=== PATIENT | female | born 1945 | race American Indian/Alaskan Native ===

== ENCOUNTER 2018-12-16 11:34 | Emergency (ER) | payer MEDICARE ==
--- NOTE | 2018-12-16 11:54 | Emergency Department Report ---
Blank Doc - Documentation Documentation: 73-year-old female that presents with uncontrolled diabetes and dizziness. Was sent by PCP. This initial assessment/diagnostic orders/clinical plan/treatment(s) is/are subject to change based on patient's health status, clinical progression and re- assessment by fellow clinical providers in the ED. Further treatment and workup at subsequent clinical providers discretion. Patient/guardians urged not to elope from the ED as their condition may be serious if not clinically assessed and managed. Initial orders include: 1- Patient sent to MAIN for further evaluation and treatment 2- labs 3- UA 4- EKG
[2018-12-16 12:43] LABS: Bacteria,Urine 1+ /HPF (Negative); Bilirubin,Urine NEG (Negative); Blood,Urine NEG (Negative); Color,Urine Straw (Yellow); Mucus,Urine FEW /HPF; Protein,Urine <15 mg/dL mg/dL (Negative); Urobilinogen,Urine < 2.0 mg/dL (<2.0)
[2018-12-16 13:25] LABS: Albumin 4.1 g/dL (3.9-5); Calcium 9.9 mg/dL (8.4-10.2)
[2018-12-16] MEDS ORDERED: SODIUM CHLORIDE 0.9% 1000 ML 1,000 ML IV ONE ×2 (13:53→14:00)
[2018-12-16 14:01] LABS: Hemoglobin 8.5 gm/dl (10.1-14.3); Mean Corpuscular HGB Conc 33 % (30-34); Mean Corpuscular Volume 71 fl (79-97); Red Blood Count 3.64 M/mm3 (3.65-5.03); Red Cell Distribution Width 17.8 % (13.2-15.2)
[2018-12-16 14:29] LABS: Platelet Count 330 K/mm3 (140-440)
[2018-12-16 14:30] LABS: Basophils # (Auto) 0.1 K/mm3 (0.0-0.1); Basophils % (Auto) 1.2 % (0.0-1.8); Eosinophils # (Auto) 0.1 K/mm3 (0.0-0.4); Eosinophils % (Auto) 0.6 % (0.0-4.3); Lymphocytes # (Auto) 1.6 K/mm3 (1.2-5.4); Lymphocytes % (Auto) 14.1 % (13.4-35.0); Monocytes # (Auto) 0.8 K/mm3 (0.0-0.8); Monocytes % (Auto) 7.1 % (0.0-7.3)
[2018-12-16] MEDS ORDERED: INSULIN REGULAR, HUMAN 100 UNITS/1 ML IV ONE ×2 (14:49→17:12)
--- NOTE | 2018-12-16 14:56 | Emergency Department Report ---
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 Patient was scheduled for an endoscopy but was canceled due to her elevated glucose levels and her feeling dizzy. Patient states her dizziness has resolved after getting something to eat. Patient is a diabetic and did not have a significant caloric intake yesterday due to preparation for endoscopy. Patient denies chest pain, suspect, or headache. Patient is diabetic and takes metformin for her glucose control -: Sudden Radiation: non-radiation Severity scale (0 -10): 0 Consistency: now resolved Improves with: eating Worsens with: none Associated Symptoms: denies other symptoms Treatments Prior to Arrival: none - Related Data Home Medications Medication Instructions Recorded Confirmed Last Taken Allopurinol [Zyloprim] 100 mg PO DAILY 12/16/18 12/16/18 Unknown Lisinopril/Hydrochlorothiazide 1 tab PO DAILY 12/16/18 12/16/18 Unknown [Zestoretic 10-12.5 mg Tablet] Metformin HCl 500 mg PO BID 12/16/18 12/16/18 2 Days Ago ~12/14/18 Omeprazole 40 mg PO QDAY 12/16/18 12/16/18 Unknown Allergies Allergy/AdvReac Type Severity Reaction Status Date / Time No Known Allergies Allergy Unverified 12/16/18 11:47 ED Review of Systems ROS: Stated complaint: LOW GLUCOSE/BP/HEART RATE Other details as noted in HPI Constitutional: denies: chills, fever Eyes: denies: eye pain, eye discharge, vision change ENT: denies: ear pain, throat pain Respiratory: denies: cough, shortness of breath, wheezing Cardiovascular: denies: chest pain, palpitations Endocrine: no symptoms reported Gastrointestinal: denies: abdominal pain, nausea, diarrhea Genitourinary: denies: urgency, dysuria, discharge Musculoskeletal: denies: back pain, joint swelling, arthralgia Skin: denies: rash, lesions Neurological: denies: headache, weakness, paresthesias Psychiatric: denies: anxiety, depression Hematological/Lymphatic: denies: easy bleeding, easy bruising ED Past Medical Hx - Past Medical History Previous Medical History?: Yes Hx Diabetes: Yes - Surgical History Past Surgical History?: Yes Additional Surgical History: Hiatal hernia - Social History Smoking Status: Never Smoker Substance Use Type: None - Medications Home Medications: Home Medications Medication Instructions Recorded Confirmed Last Taken Type Allopurinol [Zyloprim] 100 mg PO DAILY 12/16/18 12/16/18 Unknown History Lisinopril/Hydrochlorothiazide 1 tab PO DAILY 12/16/18 12/16/18 Unknown History [Zestoretic 10-12.5 mg Tablet] Metformin HCl 500 mg PO BID 12/16/18 12/16/18 2 Days Ago History ~12/14/18 Omeprazole 40 mg PO QDAY 12/16/18 12/16/18 Unknown History ED Physical Exam - General Limitations: No Limitations General appearance: alert, in no apparent distress - Head Head exam: Present: atraumatic, normocephalic - Eye Eye exam: Present: normal appearance, PERRL, EOMI - ENT ENT exam: Present: mucous membranes dry - Neck Neck exam: Present: normal inspection - Respiratory Respiratory exam: Present: normal lung sounds bilaterally. Absent: respiratory distress - Cardiovascular Cardiovascular Exam: Present: normal rhythm, tachycardia. Absent: systolic murmur, diastolic murmur, rubs, gallop - GI/Abdominal GI/Abdominal exam: Present: soft, normal bowel sounds. Absent: distended, tenderness - Extremities Exam Extremities exam: Present: normal inspection - Back Exam Back exam: Present: normal inspection - Neurological Exam Neurological exam: Present: alert, oriented X3, CN II-XII intact. Absent: motor sensory deficit - Psychiatric Psychiatric exam: Present: normal affect, normal mood - Skin Skin exam: Present: warm, dry, intact, normal color. Absent: rash ED Course Vital Signs 12/16/18 12/16/18 12/16/18 11:49 13:07 15:00 Temperature 97.7 F 97.2 F L Pulse Rate 98 H 86 86 Respiratory 18 16 18 Rate Blood Pressure 117/56 Blood Pressure 119/53 109/62 [Right] O2 Sat by Pulse 100 100 100 Oximetry 12/16/18 17:13 Temperature 98.2 F Pulse Rate 88 Respiratory 14 Rate Blood Pressure Blood Pressure 123/48 [Right] O2 Sat by Pulse 100 Oximetry ED Medical Decision Making - Lab Data Result diagrams: 12/16/18 13:38 12/16/18 12:53 Lab Results 12/16/18 12/16/18 12/16/18 Range/Units 11:51 12:53 12:53 WBC (4.5-11.0) K/mm3 RBC (3.65-5.03) M/mm3 Hgb (10.1-14.3) gm/dl Hct (30.3-42.9) % MCV (79-97) fl MCH (28-32) pg MCHC (30-34) % RDW (13.2-15.2) % Plt Count (140-440) K/mm3 Lymph % (Auto) (13.4-35.0) % [place] % (Auto) (0.0-7.3) % Eos % (Auto) (0.0-4.3) % Baso % (Auto) (0.0-1.8) % Lymph # (1.2-5.4) K/mm3 [place] # (0.0-0.8) K/mm3 Eos # (0.0-0.4) K/mm3 Baso # (0.0-0.1) K/mm3 Add Manual Diff Seg Neutrophils % (40.0-70.0) % Seg Neutrophils # (1.8-7.7) K/mm3 VBG pH 7.483 H (7.320-7.420) Sodium 123 L (137-145) mmol/L Potassium 4.9 (3.6-5.0) mmol/L Chloride 83.0 L (98-107) mmol/L Carbon Dioxide 20 L (22-30) mmol/L Anion Gap 25 mmol/L BUN 32 H (7-17) mg/dL Creatinine 1.6 H (0.7-1.2) mg/dL Estimated GFR 38 ml/min BUN/Creatinine Ratio 20 % Glucose 700 H* (65-100) mg/dL POC Glucose > 500 H (70-105) Calcium 9.9 (8.4-10.2) mg/dL Total Bilirubin 0.40 (0.1-1.2) mg/dL AST 18 (5-40) units/L ALT 15 (7-56) units/L Alkaline Phosphatase 98 (35-129) units/L Total Protein 7.9 (6.3-8.2) g/dL Albumin 4.1 (3.9-5) g/dL Albumin/Globulin Ratio 1.1 % Urine Color (Yellow) Urine Turbidity (Clear) Urine pH (5.0-7.0) Ur Specific Anderson (1.003-1.030) Urine Protein (Negative) mg/dL Urine Glucose (UA) (Negative) mg/dL Urine Ketones (Negative) mg/dL Urine Blood (Negative) Urine Nitrite (Negative) Urine Bilirubin (Negative) Urine Urobilinogen (<2.0) mg/dL Ur Leukocyte Esterase (Negative) Urine WBC (Auto) (0.0-6.0) /HPF Urine RBC (Auto) (0.0-6.0) /HPF U Epithel Cells (Auto) (0-13.0) /HPF Urine Bacteria (Auto) (Negative) /HPF Urine Mucus /HPF 12/16/18 12/16/18 12/16/18 Range/Units 13:38 15:47 17:18 WBC 11.2 H (4.5-11.0) K/mm3 RBC 3.64 L (3.65-5.03) M/mm3 Hgb 8.5 L (10.1-14.3) gm/dl Hct 26.0 L (30.3-42.9) % MCV 71 L (79-97) fl MCH 23 L (28-32) pg MCHC 33 (30-34) % RDW 17.8 H (13.2-15.2) % Plt Count 330 (140-440) K/mm3 Lymph % (Auto) 14.1 (13.4-35.0) % [place] % (Auto) 7.1 (0.0-7.3) % Eos % (Auto) 0.6 (0.0-4.3) % Baso % (Auto) 1.2 (0.0-1.8) % Lymph # 1.6 (1.2-5.4) K/mm3 [place] # 0.8 (0.0-0.8) K/mm3 Eos # 0.1 (0.0-0.4) K/mm3 Baso # 0.1 (0.0-0.1) K/mm3 Add Manual Diff Complete Seg Neutrophils % 77.0 H (40.0-70.0) % Seg Neutrophils # 8.6 H (1.8-7.7) K/mm3 VBG pH (7.320-7.420) Sodium (137-145) mmol/L Potassium (3.6-5.0) mmol/L Chloride (98-107) mmol/L Carbon Dioxide (22-30) mmol/L Anion Gap mmol/L BUN (7-17) mg/dL Creatinine (0.7-1.2) mg/dL Estimated GFR ml/min BUN/Creatinine Ratio % Glucose (65-100) mg/dL POC Glucose > 500 H 476 H (70-105) Calcium (8.4-10.2) mg/dL Total Bilirubin (0.1-1.2) mg/dL AST (5-40) units/L ALT (7-56) units/L Alkaline Phosphatase (35-129) units/L Total Protein (6.3-8.2) g/dL Albumin (3.9-5) g/dL Albumin/Globulin Ratio % Urine Color (Yellow) Urine Turbidity (Clear) Urine pH (5.0-7.0) Ur Specific Anderson (1.003-1.030) Urine Protein (Negative) mg/dL Urine Glucose (UA) (Negative) mg/dL Urine Ketones (Negative) mg/dL Urine Blood (Negative) Urine Nitrite (Negative) Urine Bilirubin (Negative) Urine Urobilinogen (<2.0) mg/dL Ur Leukocyte Esterase (Negative) Urine WBC (Auto) (0.0-6.0) /HPF Urine RBC (Auto) (0.0-6.0) /HPF U Epithel Cells (Auto) (0-13.0) /HPF Urine Bacteria (Auto) (Negative) /HPF Urine Mucus /HPF 12/16/18 12/16/18 Range/Units 18:12 Unknown WBC (4.5-11.0) K/mm3 RBC (3.65-5.03) M/mm3 Hgb (10.1-14.3) gm/dl Hct (30.3-42.9) % MCV (79-97) fl MCH (28-32) pg MCHC (30-34) % RDW (13.2-15.2) % Plt Count (140-440) K/mm3 Lymph % (Auto) (13.4-35.0) % [place] % (Auto) (0.0-7.3) % Eos % (Auto) (0.0-4.3) % Baso % (Auto) (0.0-1.8) % Lymph # (1.2-5.4) K/mm3 [place] # (0.0-0.8) K/mm3 Eos # (0.0-0.4) K/mm3 Baso # (0.0-0.1) K/mm3 Add Manual Diff Seg Neutrophils % (40.0-70.0) % Seg Neutrophils # (1.8-7.7) K/mm3 VBG pH (7.320-7.420) Sodium (137-145) mmol/L Potassium (3.6-5.0) mmol/L Chloride (98-107) mmol/L Carbon Dioxide (22-30) mmol/L Anion Gap mmol/L BUN (7-17) mg/dL Creatinine (0.7-1.2) mg/dL Estimated GFR ml/min BUN/Creatinine Ratio % Glucose (65-100) mg/dL POC Glucose 346 H (70-105) Calcium (8.4-10.2) mg/dL Total Bilirubin (0.1-1.2) mg/dL AST (5-40) units/L ALT (7-56) units/L Alkaline Phosphatase (35-129) units/L Total Protein (6.3-8.2) g/dL Albumin (3.9-5) g/dL Albumin/Globulin Ratio % Urine Color Straw (Yellow) Urine Turbidity Clear (Clear) Urine pH 6.0 (5.0-7.0) Ur Specific [place] 1.023 (1.003-1.030) Urine Protein <15 mg/dl (Negative) mg/dL Urine Glucose (UA) >=500 (Negative) mg/dL Urine Ketones 20 (Negative) mg/dL Urine Blood Neg (Negative) Urine Nitrite Neg (Negative) Urine Bilirubin Neg (Negative) Urine Urobilinogen < 2.0 (<2.0) mg/dL Ur Leukocyte Esterase Tr (Negative) Urine WBC (Auto) 1.0 (0.0-6.0) /HPF Urine RBC (Auto) 1.0 (0.0-6.0) /HPF U Epithel Cells (Auto) 8.0 (0-13.0) /HPF Urine Bacteria (Auto) 1+ (Negative) /HPF Urine Mucus Few /HPF - Medical Decision Making Patient received 2 liters of fluid with 10 units of IV insulin with a repeat dose of 5 units IV Critical Care Time: Yes Critical care time in (mins) excluding proc time.: 45 Critical care attestation.: If time is entered above; I have spent that time in minutes in the direct care of this critically ill patient, excluding procedure time. ED Disposition Clinical Impression: Hyperglycemia Disposition: DC- TO HOME OR SELFCARE Is pt being admited?: No Does the pt Need Aspirin: No Condition: Stable Instructions: Diabetic Hyperglycemia (ED) Additional Instructions: return if worse Referrals: PRIMARY CARE,MD [Primary Care Provider] - 3-5 Days [facility] [Provider Group] - 3-5 Days [facility] [Provider Group] - 3-5 Days Time of Disposition: 18:11
[2018-12-16 18:31] VITALS: BP 108/51
== END 2018-12-16 18:31 | disposition home or self-care (01) ==
LOC: ED 13:41
DX: E11.65 Type 2 diabetes mellitus with hyperglycemia (principal); Z79.84 Long term (current) use of oral hypoglycemic drugs; Z79.899 Other long term (current) drug therapy
CPT/HCPCS: 36415; 80053; 81001; 82805; 82962; 85025; 93005; 93010; 96361; 96374; 96375; 99284; J7030; J1815

== ENCOUNTER 2018-12-24 13:33 | Inpatient (IN) | payer MEDICARE ==
--- NOTE | 2018-12-24 13:47 | Event Note ---
ED Screening Note Date of service: 12/24/18 Time: 13:45 ED Screening Note: This is a 73 y.o. F. that presents to the ER with anemia. Patient states he PCP called and told her to follow up in ER because her blood is low and need a transfusion. + dizziness - SOB, chest pain PMH of DM2, hemorrhoids, and vertigo Patient reports tarry stools last week. This initial assessment/diagnostic orders/clinical plan/treatment(s) is/are subject to change based on patients health status, clinical progression and re- assessment by fellow clinical providers in the ED. Further treatment and workup at subsequent clinical providers discretion. Patient/guardian urged not to elope from the ED as their condition may be serious if not clinically assessed and managed. Initial orders include: Labs
--- NOTE | 2018-12-24 14:01 | Emergency Department Report ---
ED General Adult HPI - General Chief complaint: GI Bleed Stated complaint: SENT BY FOR BLOOD TRANSFUSION Time Seen by Provider: 12/24/18 13:44 Source: patient Mode of arrival: Wheelchair Limitations: No Limitations - History of Present Illness Initial comments: 73 yo AA comes to ER today p seeing an urgent care MD on Saturday- she got a call that her Hgb was low and she needed to come to ER for blood. Pt endorses generalized weakness. NO chest pain. SOB with activity. She had bright red stool last week. Last BM yesterday- brown. No abd pain. Reports being cold all the time. Also endorses dec appetite. Had UGI and LGI 2015- gerd and polyps were findings. Denies etoh/cig or drugs Only surgery has been hernia many years ago. Hypotensive on admit to ER. -: days(s) Associated Symptoms: weakness, other (cold all the time) Treatments Prior to Arrival: none - Related Data Home Medications Medication Instructions Recorded Confirmed Last Taken Allopurinol [Zyloprim] 100 mg PO DAILY 12/16/18 12/16/18 Unknown Lisinopril/Hydrochlorothiazide 1 tab PO DAILY 12/16/18 12/16/18 Unknown [Zestoretic 10-12.5 mg Tablet] Metformin HCl 500 mg PO BID 12/16/18 12/16/18 2 Days Ago ~12/14/18 Omeprazole 40 mg PO QDAY 12/16/18 12/16/18 Unknown Allergies Allergy/AdvReac Type Severity Reaction Status Date / Time No Known Allergies Allergy Unverified 12/16/18 11:47 ED Review of Systems ROS: Stated complaint: SENT BY FOR BLOOD TRANSFUSION Other details as noted in HPI Comment: All other systems reviewed and negative ED Past Medical Hx - Past Medical History Hx Hypertension: Yes Hx Diabetes: Yes Hx GERD: Yes Hx Arthritis: Yes (gout) - Surgical History Past Surgical History?: Yes Additional Surgical History: Hiatal hernia - Family History Family history: other (mom dec cad; dad dec ? cause) - Social History Smoking Status: Never Smoker Substance Use Type: None - Medications Home Medications: Home Medications Medication Instructions Recorded Confirmed Last Taken Type Allopurinol [Zyloprim] 100 mg PO DAILY 12/16/18 12/16/18 Unknown History Lisinopril/Hydrochlorothiazide 1 tab PO DAILY 12/16/18 12/16/18 Unknown History [Zestoretic 10-12.5 mg Tablet] Metformin HCl 500 mg PO BID 12/16/18 12/16/18 2 Days Ago History ~12/14/18 Omeprazole 40 mg PO QDAY 12/16/18 12/16/18 Unknown History ED Physical Exam - General Limitations: No Limitations General appearance: alert, in no apparent distress - Head Head exam: Present: atraumatic, normocephalic - Eye Eye exam: Present: normal appearance - ENT ENT exam: Present: mucous membranes moist - Neck Neck exam: Present: normal inspection - Respiratory Respiratory exam: Present: normal lung sounds bilaterally. Absent: respiratory distress - Cardiovascular Cardiovascular Exam: Present: regular rate, normal rhythm. Absent: systolic murmur, diastolic murmur, rubs, gallop - GI/Abdominal GI/Abdominal exam: Present: soft, normal bowel sounds - Extremities Exam Extremities exam: Present: normal inspection - Back Exam Back exam: Present: normal inspection - Neurological Exam Neurological exam: Present: alert, oriented X3 - Psychiatric Psychiatric exam: Present: normal affect, normal mood - Skin Skin exam: Present: warm, dry, intact, pallor. Absent: rash ED Course Vital Signs 12/24/18 12/24/18 12/24/18 13:46 14:30 14:43 Temperature 97.9 F Pulse Rate 86 73 74 Respiratory 18 18 17 Rate Blood Pressure 79/43 Blood Pressure 85/44 100/57 [Left] O2 Sat by Pulse 97 100 100 Oximetry 12/24/18 12/24/18 12/24/18 16:35 16:37 16:50 Temperature 98.3 F 98.3 F 98.7 F Pulse Rate 86 86 80 Respiratory 16 16 16 Rate Blood Pressure 106/38 106/38 95/47 Blood Pressure [Left] O2 Sat by Pulse 100 100 98 Oximetry 12/24/18 17:20 Temperature 98.2 F Pulse Rate 78 Respiratory 16 Rate Blood Pressure 100/49 Blood Pressure [Left] O2 Sat by Pulse 100 Oximetry - Reevaluation(s) Reevaluation #2: 12/24/18 14:24 PCP [facility] med[facility] allopurinol lisinopril/hxtz metfromin omeprazole ED Medical Decision Making - Lab Data Result diagrams: 12/24/18 13:51 12/24/18 14:37 - EKG Data EKG shows normal: sinus rhythm Rate: normal - EKG Data Interpretation: no acute changes - Radiology Data Radiology results: report reviewed, image reviewed - Medical Decision Making Lab Results 12/24/18 12/24/18 12/24/18 Range/Units 13:51 13:57 14:37 WBC 7.0 (4.5-11.0) K/mm3 RBC 2.86 L (3.65-5.03) M/mm3 Hgb 6.4 L (10.1-14.3) gm/dl Hct 19.7 L* (30.3-42.9) % MCV 69 L (79-97) fl MCH 23 L (28-32) pg MCHC 33 (30-34) % RDW 18.1 H (13.2-15.2) % Plt Count 531 H (140-440) K/mm3 Lymph % (Auto) 37.8 H (13.4-35.0) % [place] % (Auto) 7.5 H (0.0-7.3) % Eos % (Auto) 1.9 (0.0-4.3) % Baso % (Auto) 2.5 H (0.0-1.8) % Lymph # 2.7 (1.2-5.4) K/mm3 [place] # 0.5 (0.0-0.8) K/mm3 Eos # 0.1 (0.0-0.4) K/mm3 Baso # 0.2 H (0.0-0.1) K/mm3 Seg Neutrophils % 50.3 (40.0-70.0) % Seg Neutrophils # 3.5 (1.8-7.7) K/mm3 VBG pH 7.412 (7.320-7.420) Blood Type B POSITIVE Crossmatch See Detail Vital Signs 12/24/18 12/24/18 12/24/18 13:46 14:30 14:43 Temperature 97.9 F Pulse Rate 86 73 74 Respiratory 18 18 17 Rate Blood Pressure 79/43 Blood Pressure 85/44 100/57 [Left] O2 Sat by Pulse 97 100 100 Oximetry large external hemorrhoid guiac pos stool labs noted 1L NS 1 U RBC trop neg Staffed with Dr Knox Pt being admitted to [facility] [place] for symptomatic anemia. Critical care attestation.: If time is entered above; I have spent that time in minutes in the direct care of this critically ill patient, excluding procedure time. ED Disposition Clinical Impression: Symptomatic anemia, Weakness Disposition: DC-09 OP ADMIT IP TO THIS HOSP Is pt being admited?: Yes Does the pt Need Aspirin: Yes Condition: Stable Time of Disposition: 15:18
[2018-12-24] MEDS ORDERED: SODIUM CHLORIDE 0.9% 1000 ML 1,000 ML IV ONE (14:03)
[2018-12-24 14:16] LABS: Basophils # (Auto) 0.2 K/mm3 (0.0-0.1); Basophils % (Auto) 2.5 % (0.0-1.8); Eosinophils # (Auto) 0.1 K/mm3 (0.0-0.4); Eosinophils % (Auto) 1.9 % (0.0-4.3); Hemoglobin 6.4 gm/dl (10.1-14.3); Lymphocytes # (Auto) 2.7 K/mm3 (1.2-5.4); Lymphocytes % (Auto) 37.8 % (13.4-35.0); Mean Corpuscular HGB Conc 33 % (30-34); Monocytes # (Auto) 0.5 K/mm3 (0.0-0.8); Monocytes % (Auto) 7.5 % (0.0-7.3); Platelet Count 531 K/mm3 (140-440); Red Blood Count 2.86 M/mm3 (3.65-5.03); Red Cell Distribution Width 18.1 % (13.2-15.2)
[2018-12-24] MEDS ORDERED: PANTOPRAZOLE 40 MG INJ IV ONE (14:22)
--- NOTE | 2018-12-24 14:26 | XRay Report ---
CHEST 1 VIEW INDICATION: abd pain. Low blood pressure. GI bleed. COMPARISON: None FINDINGS: Support devices: None. Heart: Within normal limits. Lungs/Pleura: No acute air space or interstitial disease. Additional findings: None. IMPRESSION: No acute findings. Signer Name: Ramin Williamson Jr, MD Signed: 12/24/2018 2:22 PM Workstation Name: [id number]
[2018-12-24 14:34] LABS: Hematocrit 19.7 % (30.3-42.9); Mean Corpuscular Volume 69 fl (79-97)
[2018-12-24] MEDS ORDERED: SODIUM CHLORIDE 0.9% 500 ML 500 ML IV ONE (14:47)
[2018-12-24 15:20] LABS: INR 0.94 (0.87-1.13)
[2018-12-24 15:23] LABS: Alanine Aminotransferase 16 units/L (7-56); Albumin 3.4 g/dL (3.9-5); BUN/Creatinine Ratio 15; Blood Urea Nitrogen 20 mg/dL (7-17); Calcium 8.8 mg/dL (8.4-10.2); Hemolysis Index 0
[2018-12-24] MEDS ORDERED: SODIUM CHLORIDE 0.9% 500 ML 500 ML ONE (18:17)
[2018-12-24] MEDS ORDERED: ONDANSETRON 4 MG/2 ML INJ IV PRN (18:59)
[2018-12-24] MEDS ORDERED: ACETAMINOPHEN 325 MG TAB PO PRN (18:59)
[2018-12-24] MEDS ORDERED: HYDROmorphone 1 MG/1 ML INJ IV PRN (19:03)
[2018-12-24] MEDS ORDERED: SODIUM CHLORIDE 0.9% 500 ML 500 ML IV SCH (19:07)
[2018-12-24 19:09] LABS: Basophils % (Auto) 0.4 % (0.0-1.8); Eosinophils # (Auto) 0.1 K/mm3 (0.0-0.4); Eosinophils % (Auto) 1.5 % (0.0-4.3); Hemoglobin 6.1 gm/dl (10.1-14.3); Lymphocytes # (Auto) 2.8 K/mm3 (1.2-5.4); Lymphocytes % (Auto) 40.7 % (13.4-35.0); Mean Corpuscular HGB Conc 33 % (30-34); Monocytes # (Auto) 0.6 K/mm3 (0.0-0.8); Monocytes % (Auto) 8.1 % (0.0-7.3); Platelet Count 468 K/mm3 (140-440); Red Blood Count 2.66 M/mm3 (3.65-5.03); Red Cell Distribution Width 18.5 % (13.2-15.2)
[2018-12-24 19:17] LABS: Hematocrit 18.6 % (30.3-42.9)
[2018-12-24 19:18] LABS: Mean Corpuscular Volume 70 fl (79-97)
[2018-12-24 19:36] LABS: Hemoglobin 8.9 gm/dl (10.1-14.3)
[2018-12-24] MEDS ORDERED: SODIUM CHLORIDE 0.9% 1000 ML 1,000 ML IV SCH (20:00)
[2018-12-24] MEDS ORDERED: cloNIDine TTS 0.1 MG/24 HR PATCH TD SCH (20:00)
[2018-12-24] MEDS: PANTOPRAZOLE 40 MG INJ IV SCH (22:21)
[2018-12-25 05:10] LABS: Hematocrit 26.9 % (30.3-42.9)
[2018-12-25 05:31] LABS: Calcium 9.1 mg/dL (8.4-10.2)
--- NOTE | 2018-12-25 06:19 | History and Physical Report ---
History of Present Illness Date of examination: 12/24/18 Date of admission: 12/24/18 19:00 Chief complaint: Low Hb level History of present illness: 73 yo AA comes to ER today bcoz she got a call from the Urgent care center she visited 2 days ago that her Hgb was low and she needed to come to ER for blood transfusion.Pt endorses generalized weakness. NO chest pain. SOB with activity. She had bright red stool last week. Has hemorrhoids to which she attributes.Last BM yesterday- brown.No abd pain. Reports being cold all the time. Also endorses dec appetite. Had UGI and LGI 2016- gerd and polyps were findings. Denies etoh/cig or drugs or NSAID use. Past Medical History Hypertension: Yes Diabetes: Yes GERD: Yes Arthritis: Yes (gout) Surgical History Past Surgical History?: Yes Additional Surgical History: Hiatal hernia Family History Family history: other (mom dec cad) Social History Smoking Status: Never Smoker Substance Use Type: None Medications Home Medications: Home Medications Medication Instructions Recorded Confirmed Last Taken Type Allopurinol [Zyloprim] 100 mg PO DAILY 12/16/18 12/16/18 Unknown History Lisinopril/Hydrochlorothiazide 1 tab PO DAILY 12/16/18 12/16/18 Unknown History [Zestoretic 10-12.5 mg Tablet] Metformin HCl 500 mg PO BID 12/16/18 12/16/18 2 Days Ago History ~12/14/18 Omeprazole 40 mg PO QDAY 12/16/18 12/16/18 Unknown History Review of Systems ROS: Stated complaint: SENT BY DR FOR BLOOD TRANSFUSION Other details as noted in HPI Comment: All other systems reviewed and negative Medications and Allergies Allergies Allergy/AdvReac Type Severity Reaction Status Date / Time No Known Allergies Allergy Unverified 12/16/18 11:47 Home Medications Medication Instructions Recorded Confirmed Last Taken Type Allopurinol [Zyloprim] 100 mg PO DAILY 12/16/18 12/25/18 12/24/18 History Lisinopril/Hydrochlorothiazide 1 tab PO DAILY 12/16/18 12/25/18 12/24/18 History [Zestoretic 10-12.5 mg Tablet] Metformin HCl 500 mg PO BID 12/16/18 12/25/18 12/24/18 History Omeprazole 40 mg PO QDAY 12/16/18 12/25/1812/24/19 History Active Meds: Active Medications Acetaminophen (Tylenol) 650 mg PO Q4H PRN PRN Reason: Pain MILD(1-3)/Fever >100.5/FARFAN Clonidine HCl (Catapres-Tts Patch) 0.1 mg TD We [facility] Last Admin: 12/24/18 23:28 Dose: Not Given Documented by: Hydromorphone HCl (Dilaudid) 0.5 mg IV Q3H PRN PRN Reason: Pain , Severe (7-10) Sodium Chloride (Nacl 0.9% 1000 Ml) 1,000 mls @ 75 mls/hr IV DIRECT [facility] Stop: 12/25/18 19:59 Last Admin: 12/25/18 02:42 Dose: 75 mls/hr Documented by: Sodium Chloride (Nacl 0.9% 500 Ml) 500 mls @ 0 mls/hr IV ONCE [facility] Last Admin: 12/24/18 23:14 Dose: 50 mls/hr Documented by: Ondansetron HCl (Zofran) 4 mg IV Q8H PRN PRN Reason: Nausea And Vomiting Pantoprazole Sodium (Protonix) 40 mg IV BID [facility] Last Admin: 12/24/18 22:21 Dose: 40 mg Documented by: Sodium Chloride (Sodium Chloride Flush Syringe 10 Ml) 10 ml IV BID [facility] Last Admin: 12/24/18 22:21 Dose: 10 ml Documented by: Sodium Chloride (Sodium Chloride Flush Syringe 10 Ml) 10 ml IV PRN PRN PRN Reason: LINE FLUSH Review of Systems All systems: negative Cardiovascular: shortness of breath, dyspnea on exertion Gastrointestinal: change in bowel habits, hematochezia Menstruation: ammenorrhea Neurological: no seizures, no syncope Psychiatric: anxiety Exam - Constitutional Vitals: Temp Pulse Resp BP Pulse Ox 98.2 F 82 20 105/60 100 12/25/18 01:33 12/25/18 01:33 12/25/18 01:33 12/25/18 01:33 12/25/18 01:33 General appearance: Present: no acute distress, well-nourished - EENT Eyes: Present: PERRL ENT: hearing intact, clear oral mucosa, other (Pale mucous membranes) - Neck Neck: Present: supple, normal ROM - Respiratory Respiratory effort: normal Respiratory: bilateral: CTA - Cardiovascular Heart Sounds: Present: S1 & S2. Absent: rub, click - Extremities Extremities: pulses symmetrical, No edema Peripheral Pulses: within normal limits - Abdominal General gastrointestinal: Present: soft, non-tender, non-distended, normal bowel sounds Female genitourinary: Present: normal - Integumentary Integumentary: Present: clear, warm, dry - Musculoskeletal Musculoskeletal: gait normal, strength equal bilaterally - Psychiatric Psychiatric: appropriate mood/affect, intact judgment & insight - Neurologic Neurologic: CNII-XII intact, moves all extremities Results - Labs CBC & Chem 7: 12/25/18 04:00 12/25/18 04:00 Labs: Laboratory Last Values WBC 6.9 K/mm3 (4.5-11.0) 12/24/18 18:35 RBC 2.66 M/mm3 (3.65-5.03) L 12/24/18 18:35 Hgb 9.0 gm/dl (10.1-14.3) L 12/25/18 04:00 Hct 26.9 % (30.3-42.9) L 12/25/18 04:00 MCV 70 fl (79-97) L 12/24/18 18:35 MCH 23 pg (28-32) L 12/24/18 18:35 MCHC 33 % (30-34) 12/24/18 18:35 RDW 18.5 % (13.2-15.2) H 12/24/18 18:35 Plt Count 468 K/mm3 (140-440) H 12/24/18 18:35 Lymph % (Auto) 40.7 % (13.4-35.0) H 12/24/18 18:35 [place] % (Auto) 8.1 % (0.0-7.3) H 12/24/18 18:35 Eos % (Auto) 1.5 % (0.0-4.3) 12/24/18 18:35 Baso % (Auto) 0.4 % (0.0-1.8) 12/24/18 18:35 Lymph # 2.8 K/mm3 (1.2-5.4) 12/24/18 18:35 [place] # 0.6 K/mm3 (0.0-0.8) 12/24/18 18:35 Eos # 0.1 K/mm3 (0.0-0.4) 12/24/18 18:35 Baso # 0.0 K/mm3 (0.0-0.1) 12/24/18 18:35 Seg Neutrophils % 49.3 % (40.0-70.0) 12/24/18 18:35 Seg Neutrophils # 3.4 K/mm3 (1.8-7.7) 12/24/18 18:35 PT 12.5 Sec. (12.2-14.9) 12/24/18 14:37 INR 0.94 (0.87-1.13) 12/24/18 14:37 APTT 26.0 Sec. (24.2-36.6) 12/24/18 14:37 VBG pH 7.412 (7.320-7.420) 12/24/18 14:37 Sodium 136 mmol/L (137-145) L 12/25/18 04:00 Potassium 4.1 mmol/L (3.6-5.0) 12/25/18 04:00 Chloride 103.0 mmol/L (98-107) 12/25/18 04:00 Carbon Dioxide 19 mmol/L (22-30) L 12/25/18 04:00 Anion Gap 18 mmol/L 12/25/18 04:00 BUN 16 mg/dL (7-17) 12/25/18 04:00 Creatinine 1.2 mg/dL (0.7-1.2) 12/25/18 04:00 Estimated GFR 53 ml/min 12/25/18 04:00 BUN/Creatinine Ratio 13 % 12/25/18 04:00 Glucose 139 mg/dL (65-100) H 12/25/18 04:00 Hemoglobin A1c 12.7 % (4-6) H 12/24/18 19:12 Calcium 9.1 mg/dL (8.4-10.2) 12/25/18 04:00 Total Bilirubin < 0.20 mg/dL (0.1-1.2) 12/24/18 14:37 AST 17 units/L (5-40) 12/24/18 14:37 ALT 16 units/L (7-56) 12/24/18 14:37 Alkaline Phosphatase 56 units/L (35-129) 12/24/18 14:37 Troponin T < 0.010 ng/mL (0.00-0.029) 12/24/18 14:37 Total Protein 5.8 g/dL (6.3-8.2) L 12/24/18 14:37 Albumin 3.4 g/dL (3.9-5) L 12/24/18 14:37 Albumin/Globulin Ratio 1.4 % 12/24/18 14:37 Blood Type B POSITIVE 12/24/18 13:57 Antibody Screen Negative 12/24/18 13:57 Crossmatch See Detail 12/24/18 13:57 Short CBC 12/24/18 12/24/18 12/24/18 Range/Units 13:51 18:35 19:17 WBC 7.0 6.9 (4.5-11.0) K/mm3 Hgb 6.4 L 6.1 L 8.9 L (10.1-14.3) gm/dl Hct 19.7 L* 18.6 L* 27.0 L D (30.3-42.9) % Plt Count 531 H 468 H (140-440) K/mm3 12/25/18 Range/Units 04:00 WBC (4.5-11.0) K/mm3 Hgb 9.0 L (10.1-14.3) gm/dl Hct 26.9 L (30.3-42.9) % Plt Count (140-440) K/mm3 BMP 12/24/18 12/25/18 14:37 04:00 Sodium 130 L 136 L Potassium 4.1 4.1 Chloride 95.6 L 103.0 Carbon Dioxide 20 L 19 L BUN 20 H 16 Creatinine 1.3 H 1.2 Glucose 155 H 139 H Calcium 8.8 9.1 Cardiac Enzymes 12/24/18 Range/Units 14:37 Troponin T < 0.010 (0.00-0.029) ng/mL Liver Function 12/24/18 Range/Units 14:37 Total Bilirubin < 0.20 (0.1-1.2) mg/dL AST 17 (5-40) units/L ALT 16 (7-56) units/L Alkaline Phosphatase 56 (35-129) units/L Albumin 3.4 L (3.9-5) g/dL - Imaging and Cardiology EKG: report reviewed Chest x-ray: report reviewed (NAF) Assessment and Plan Advance Directives: Yes (Full code) VTE prophylaxis?: Chemical Plan of care discussed with patient/family: Yes - Patient Problems (1) Blood loss anemia Current Visit: Yes Status: Acute Plan to address problem: Acute blood loss anemia Trnsfuse 2 units of PRBC for now (2) GI bleed Current Visit: Yes Status: Acute Qualifiers: GI bleed type/associated pathology: anorectal hemorrhage Qualified Code(s): K62.5 - Hemorrhage of anus and rectum Plan to address problem: Probably from Hemorrhoids GI consult requested (3) HTN (hypertension) Current Visit: Yes Status: Chronic Qualifiers: Hypertension type: essential hypertension Qualified Code(s): I10 - Essential (primary) hypertension Plan to address problem: Catapress patch for now (4) T2DM (type 2 diabetes mellitus) Current Visit: Yes Status: Chronic Qualifiers: Diabetes mellitus intermediate insulin use: without intermediate use Plan to address problem: COverage for now (5) Gout Current Visit: Yes Status: Inactive Plan to address problem: Hold Allopurinol for now
--- NOTE | 2018-12-25 08:50 | Progress Note ---
Assessment and Plan Assessment and plan: --Acute Blood loss anemia Current Visit: Yes Status: Acute Acute blood loss anemia s/p 2 units of PRBC infusion , HB improved 6.1- 9.8 Closely monitor H&H and transfuse additional as needed --Acute on chronic GI bleed Current Visit: Yes Status: Acute Probably from Hemorrhoids GI evaluation,Possible endoscopy tomorrow --HTN (hypertension) Current Visit: Yes Status: Chronic Catapress patch, when necessary medications --T2DM (type 2 diabetes mellitus) Current Visit: Yes Status: Chronic SSC , Accu-Cheks, insulin as needed -- H/O Gout. Current Visit: Yes Status: Inactive Hold Allopurinol . --DVT prophylaxis: SCD, pharmacologic anticoagulation in view of Severe anemia and GI bleeding Follow GI consults and recommendations Possible discharge in 1-2 days if stable Plan of care reviewed with the patient and her nurse History Interval history: Patient seen and examined medical records reviewed Patient was admitted with severe anemia, received 2 units of PRBC Has history of GI bleeding, GI consult. Patient feels slightly better mild weakness Vital signs reviewed Hospitalist Physical - Constitutional Vitals: Temp Pulse Resp BP Pulse Ox 98.2 F 82 20 105/60 100 12/25/18 01:33 12/25/18 01:33 12/25/18 01:33 12/25/18 01:33 12/25/18 01:33 General appearance: Present: no acute distress, well-nourished - EENT Eyes: Present: PERRL, EOM intact - Neck Neck: Present: supple, normal ROM - Respiratory Respiratory effort: normal Respiratory: bilateral: diminished, negative: rales, rhonchi, wheezing - Cardiovascular Rhythm: regular Heart Sounds: Present: S1 & S2 - Extremities Extremities: no ischemia, No edema - Abdominal General gastrointestinal: soft, non-tender, non-distended, normal bowel sounds - Integumentary Integumentary: Present: clear, warm - Psychiatric Psychiatric: appropriate mood/affect, cooperative - Neurologic Neurologic: moves all extremities Results - Labs CBC & Chem 7: 12/25/18 10:50 12/25/18 04:00 Labs: Laboratory Last Values WBC 6.9 K/mm3 (4.5-11.0) 12/24/18 18:35 RBC 2.66 M/mm3 (3.65-5.03) L 12/24/18 18:35 Hgb 9.0 gm/dl (10.1-14.3) L 12/25/18 04:00 Hct 26.9 % (30.3-42.9) L 12/25/18 04:00 MCV 70 fl (79-97) L 12/24/18 18:35 MCH 23 pg (28-32) L 12/24/18 18:35 MCHC 33 % (30-34) 12/24/18 18:35 RDW 18.5 % (13.2-15.2) H 12/24/18 18:35 Plt Count 468 K/mm3 (140-440) H 12/24/18 18:35 Lymph % (Auto) 40.7 % (13.4-35.0) H 12/24/18 18:35 [place] % (Auto) 8.1 % (0.0-7.3) H 12/24/18 18:35 Eos % (Auto) 1.5 % (0.0-4.3) 12/24/18 18:35 Baso % (Auto) 0.4 % (0.0-1.8) 12/24/18 18:35 Lymph # 2.8 K/mm3 (1.2-5.4) 12/24/18 18:35 [place] # 0.6 K/mm3 (0.0-0.8) 12/24/18 18:35 Eos # 0.1 K/mm3 (0.0-0.4) 12/24/18 18:35 Baso # 0.0 K/mm3 (0.0-0.1) 12/24/18 18:35 Seg Neutrophils % 49.3 % (40.0-70.0) 12/24/18 18:35 Seg Neutrophils # 3.4 K/mm3 (1.8-7.7) 12/24/18 18:35 PT 12.5 Sec. (12.2-14.9) 12/24/18 14:37 INR 0.94 (0.87-1.13) 12/24/18 14:37 APTT 26.0 Sec. (24.2-36.6) 12/24/18 14:37 VBG pH 7.412 (7.320-7.420) 12/24/18 14:37 Sodium 136 mmol/L (137-145) L 12/25/18 04:00 Potassium 4.1 mmol/L (3.6-5.0) 12/25/18 04:00 Chloride 103.0 mmol/L (98-107) 12/25/18 04:00 Carbon Dioxide 19 mmol/L (22-30) L 12/25/18 04:00 Anion Gap 18 mmol/L 12/25/18 04:00 BUN 16 mg/dL (7-17) 12/25/18 04:00 Creatinine 1.2 mg/dL (0.7-1.2) 12/25/18 04:00 Estimated GFR 53 ml/min 12/25/18 04:00 BUN/Creatinine Ratio 13 % 12/25/18 04:00 Glucose 139 mg/dL (65-100) H 12/25/18 04:00 Hemoglobin A1c 12.7 % (4-6) H 12/24/18 19:12 Calcium 9.1 mg/dL (8.4-10.2) 12/25/18 04:00 Total Bilirubin < 0.20 mg/dL (0.1-1.2) 12/24/18 14:37 AST 17 units/L (5-40) 12/24/18 14:37 ALT 16 units/L (7-56) 12/24/18 14:37 Alkaline Phosphatase 56 units/L (35-129) 12/24/18 14:37 Troponin T < 0.010 ng/mL (0.00-0.029) 12/24/18 14:37 Total Protein 5.8 g/dL (6.3-8.2) L 12/24/18 14:37 Albumin 3.4 g/dL (3.9-5) L 12/24/18 14:37 Albumin/Globulin Ratio 1.4 % 12/24/18 14:37 Blood Type B POSITIVE 12/24/18 13:57 Antibody Screen Negative 12/24/18 13:57 Crossmatch See Detail 12/24/18 13:57 Active Medications - Current Medications Current Medications: Generic Name Dose Route Start Last Admin Trade Name Freq PRN Reason Stop Dose Admin Acetaminophen 650 mg 12/24/18 18:59 Tylenol PO Q4H PRN Pain MILD(1-3)/Fever >100.5/FARFAN Clonidine HCl 0.1 mg 12/24/18 20:00 12/24/18 23:28 Catapres-Tts Patch TD Not Given We [facility] Hydromorphone HCl 0.5 mg 12/24/18 19:03 Dilaudid IV Q3H PRN Pain , Severe (7-10) Sodium Chloride 1,000 mls @ 75 mls/hr 12/24/18 20:00 12/25/18 02:42 Nacl 0.9% 1000 Ml IV 12/25/18 19:59 75 mls/hr DIRECT [facility] Administration Sodium Chloride 500 mls @ 0 mls/hr 12/24/18 19:07 12/24/18 23:14 Nacl 0.9% 500 Ml IV 50 mls/hr ONCE [facility] Administration As Directed Insulin Human Lispro 0 unit 12/25/18 07:00 Humalog SUB-Q Q6HR [facility] Protocol Ondansetron HCl 4 mg 12/24/18 18:59 Zofran IV Q8H PRN Nausea And Vomiting Pantoprazole Sodium 40 mg 12/24/18 22:00 12/24/18 22:21 Protonix IV 40 mg BID [facility] Administration Sodium Chloride 10 ml 12/24/18 22:00 12/24/18 22:21 Sodium Chloride Flush Syringe 10 Ml IV 10 ml BID [facility] Administration Sodium Chloride 10 ml 12/24/18 18:59 Sodium Chloride Flush Syringe 10 Ml IV PRN PRN LINE FLUSH
[2018-12-25] MEDS: INSULIN LISPRO 100 UNIT/ML SUB-Q SCH ×3 (09:15→19:00)
--- NOTE | 2018-12-25 10:25 | Gastroenterology Consultation ---
<LEATHA PORRAS - Last Filed: 12/25/18 10:35> History of Present Illness - Reason for Consult Consult date: 12/25/18 GI bleed Requesting physician: GITA LUCAS - History of Present Illness Patient is a 73 y/o female with PMH of HTN, DM, GERD, arthritis, and gout who was admitted for anemia to which GI has been consulted to r/o GI bleeding. Patient is previously known to our service with last OV 11/10/[address] Lopez. She was previously scheduled for an EGD last week for c/o early satiety/decrease appetite with associated wt loss, however procedure had to be cancelled due to hyperglycemia (patient had not been taking DM medication at home). This morning patient was resting in bed w/o acute distress. Reports no active signs of bleeding at this time, but states she had some dark stools last week which has now resolved with last BM yesterday with yellow/brown stool. She also c/o hemorrhoids with a small amount of bright red blood in stool also last week. Denies fever, CP, SOB, dysphagia, hematemesis, or diarrhea. Has come intermittent chronic constipation. No hx of anemia, PUD, or GI bleeding. No NSAID use. No Fhx of GI cancer. Last colonoscopy over 10 years ago that revealed polyps per pt report (record unavailable). Past History Past Medical History: other (as per HPI) Past Surgical History: hernia repair (hiatal hernia) Social history: denies: smoking, alcohol abuse Family history: CAD Medications and Allergies Allergies Allergy/AdvReac Type Severity Reaction Status Date / Time No Known Allergies Allergy Unverified 12/16/18 11:47 Home Medications Medication Instructions Recorded Confirmed Last Taken Type Allopurinol [Zyloprim] 100 mg PO DAILY 12/16/18 12/25/18 12/24/18 History Lisinopril/Hydrochlorothiazide 1 tab PO DAILY 12/16/18 12/25/18 12/24/18 History [Zestoretic 10-12.5 mg Tablet] Metformin HCl 500 mg PO BID 12/16/18 12/25/18 12/24/18 History Omeprazole 40 mg PO QDAY 12/16/18 12/25/18 12/24/18 History Active Meds: Active Medications Acetaminophen (Tylenol) 650 mg PO Q4H PRN PRN Reason: Pain MILD(1-3)/Fever >100.5/FARFAN Clonidine HCl (Catapres-Tts Patch) 0.1 mg TD We [facility] Last Admin: 12/24/18 23:28 Dose: Not Given Documented by: Hydromorphone HCl (Dilaudid) 0.5 mg IV Q3H PRN PRN Reason: Pain , Severe (7-10) Sodium Chloride (Nacl 0.9% 1000 Ml) 1,000 mls @ 75 mls/hr IV DIRECT [facility] Stop: 12/25/18 19:59 Last Admin: 12/25/18 02:42 Dose: 75 mls/hr Documented by: Sodium Chloride (Nacl 0.9% 500 Ml) 500 mls @ 0 mls/hr IV ONCE [facility] Last Admin: 12/24/18 23:14 Dose: 50 mls/hr Documented by: Insulin Human Lispro (Humalog) 0 unit SUB-Q Q6HR [facility]; Protocol Ondansetron HCl (Zofran) 4 mg IV Q8H PRN PRN Reason: Nausea And Vomiting Pantoprazole Sodium (Protonix) 40 mg IV BID [facility] Last Admin: 12/24/18 22:21 Dose: 40 mg Documented by: Sodium Chloride (Sodium Chloride Flush Syringe 10 Ml) 10 ml IV BID [facility] Last Admin: 12/24/18 22:21 Dose: 10 ml Documented by: Sodium Chloride (Sodium Chloride Flush Syringe 10 Ml) 10 ml IV PRN PRN PRN Reason: LINE FLUSH medications reviewed/updated as required Review of Systems - Review of Systems All systems: negative Constitutional: weight loss, poor appetite Gastrointestinal: early satiety, other (dark stool/BRBPR last week-now resolved), no abdominal pain, no nausea, no vomiting, no hematemesis Exam - Constitutional Vital Signs: Temp Pulse Resp BP Pulse Ox 98.3 F 82 18 102/50 98 12/25/18 07:44 12/25/18 07:44 12/25/18 07:44 12/25/18 07:44 12/25/18 07:44 General appearance: no acute distress - EENT Eyes: PERRL, EOM intact ENT: hearing intact - Respiratory Respiratory effort: normal Respiratory: bilateral: CTA - Cardiovascular Rhythm: regular - Gastrointestinal General gastrointestinal: Present: soft, non-tender, non-distended, normal bowel sounds - Integumentary Integumentary: Present: warm, dry - Neurologic Neurological: alert and oriented x3 - Psychiatric Psychiatric: appropriate mood/affect - Labs CBC & Chem 7: 12/25/18 04:00 12/25/18 04:00 Lab Results: Laboratory Results - last 24 hr 12/24/18 12/24/18 12/24/18 13:51 13:57 14:37 WBC 7.0 RBC 2.86 L Hgb 6.4 L Hct 19.7 L* MCV 69 L MCH 23 L MCHC 33 RDW 18.1 H Plt Count 531 H Lymph % (Auto) 37.8 H [place] % (Auto) 7.5 H Eos % (Auto) 1.9 Baso % (Auto) 2.5 H Lymph # 2.7 [place] # 0.5 Eos # 0.1 Baso # 0.2 H Seg Neutrophils % 50.3 Seg Neutrophils # 3.5 PT INR APTT VBG pH Sodium 130 L Potassium 4.1 Chloride 95.6 L Carbon Dioxide 20 L Anion Gap 19 BUN 20 H Creatinine 1.3 H Estimated GFR 48 BUN/Creatinine Ratio 15 Glucose 155 H POC Glucose Hemoglobin A1c Calcium 8.8 Total Bilirubin < 0.20 AST 17 ALT 16 Alkaline Phosphatase 56 Troponin T < 0.010 Total Protein 5.8 L Albumin 3.4 L Albumin/Globulin Ratio 1.4 Blood Type B POSITIVE Antibody Screen Negative Crossmatch See Detail 12/24/18 12/24/18 12/24/18 14:37 14:37 18:35 WBC 6.9 RBC 2.66 L Hgb 6.1 L Hct 18.6 L* MCV 70 L MCH 23 L MCHC 33 RDW 18.5 H Plt Count 468 H Lymph % (Auto) 40.7 H [place] % (Auto) 8.1 H Eos % (Auto) 1.5 Baso % (Auto) 0.4 Lymph # 2.8 [place] # 0.6 Eos # 0.1 Baso # 0.0 Seg Neutrophils % 49.3 Seg Neutrophils # 3.4 PT 12.5 INR 0.94 APTT 26.0 VBG pH 7.412 Sodium Potassium Chloride Carbon Dioxide Anion Gap BUN Creatinine Estimated GFR BUN/Creatinine Ratio Glucose POC Glucose Hemoglobin A1c Calcium Total Bilirubin AST ALT Alkaline Phosphatase Troponin T Total Protein Albumin Albumin/Globulin Ratio Blood Type Antibody Screen Crossmatch 12/24/18 12/24/18 12/25/18 19:12 19:17 04:00 WBC RBC Hgb 8.9 L Hct 27.0 L D MCV MCH MCHC RDW Plt Count Lymph % (Auto) [place] % (Auto) Eos % (Auto) Baso % (Auto) Lymph # [place] # Eos # Baso # Seg Neutrophils % Seg Neutrophils # PT INR APTT VBG pH Sodium 136 L Potassium 4.1 Chloride 103.0 Carbon Dioxide 19 L Anion Gap 18 BUN 16 Creatinine 1.2 Estimated GFR 53 BUN/Creatinine Ratio 13 Glucose 139 H POC Glucose Hemoglobin A1c 12.7 H Calcium 9.1 Total Bilirubin AST ALT Alkaline Phosphatase Troponin T Total Protein Albumin Albumin/Globulin Ratio Blood Type Antibody Screen Crossmatch 12/25/18 12/25/18 04:00 09:12 WBC RBC Hgb 9.0 L Hct 26.9 L MCV MCH MCHC RDW Plt Count Lymph % (Auto) [place] % (Auto) Eos % (Auto) Baso % (Auto) Lymph # [place] # Eos # Baso # Seg Neutrophils % Seg Neutrophils # PT INR APTT VBG pH Sodium Potassium Chloride Carbon Dioxide Anion Gap BUN Creatinine Estimated GFR BUN/Creatinine Ratio Glucose POC Glucose 159 H Hemoglobin A1c Calcium Total Bilirubin AST ALT Alkaline Phosphatase Troponin T Total Protein Albumin Albumin/Globulin Ratio Blood Type Antibody Screen Crossmatch Assessment and Plan 1.anemia-microcytic 2.early satiety 3.decreased appetite/wt loss 4.dark stool-resolved 5.BRBPR (resolved)/hemorrhoids -afebrile -WBC WNL -INR WNL -plt 468 -BUN and LFTs WNL -H/H 9.0/26.9- s/p blood transfusion with 2 units PRBCs (6.4/19.7 on admission) -continue to monitor H/H and transfuse as needed- hold blood thinning medications -no active signs of bleeding overnight or this am (patient reports dark stool and small amount of BRBPR associated with hemorrhoids last week which is now resolved) -currently HD stable -last colonoscopy over 10 years ago which revealed polyps per pt report -outpatient EGD cancelled last week (12/16/18) 2/2 hyperglycemia -will schedule for EGD/colonoscopy tomorrow for further evaluation of above symptoms (r/o malignancy or other GI pathology) -okay for clear liquids today then NPO after MN -continue PPI and supportive care -will follow <DODIE LOPEZ - Last Filed: 12/25/18 23:01> Medications and Allergies Active Meds: Active Medications Acetaminophen (Tylenol) 650 mg PO Q4H PRN PRN Reason: Pain MILD(1-3)/Fever >100.5/FARFAN Clonidine HCl (Catapres-Tts Patch) 0.1 mg TD We [facility] Last Admin: 12/24/18 23:28 Dose: Not Given Documented by: Hydromorphone HCl (Dilaudid) 0.5 mg IV Q3H PRN PRN Reason: Pain , Severe (7-10) Sodium Chloride (Nacl 0.9% 500 Ml) 500 mls @ 0 mls/hr IV ONCE [facility] Last Admin: 12/24/18 23:14 Dose: 50 mls/hr Documented by: Insulin Human Lispro (Humalog) 0 unit SUB-Q Q6HR [facility]; Protocol Last Admin: 12/25/18 19:00 Dose: Not Given Documented by: Ondansetron HCl (Zofran) 4 mg IV Q8H PRN PRN Reason: Nausea And Vomiting Pantoprazole Sodium (Protonix) 40 mg IV BID [facility] Last Admin: 12/25/18 21:50 Dose: 40 mg Documented by: Sodium Chloride (Sodium Chloride Flush Syringe 10 Ml) 10 ml IV BID [facility] Last Admin: 12/25/18 21:54 Dose: 10 ml Documented by: Sodium Chloride (Sodium Chloride Flush Syringe 10 Ml) 10 ml IV PRN PRN PRN Reason: LINE FLUSH Exam - Constitutional Vital Signs: Temp Pulse Resp BP Pulse Ox 97.7 F 89 18 112/53 100 12/25/18 20:14 12/25/18 20:14 12/25/18 20:14 12/25/18 20:14 12/25/18 20:14 - Labs CBC & Chem 7: 12/25/18 10:50 12/25/18 04:00 Lab Results: Laboratory Results - last 24 hr 12/24/18 12/24/18 12/25/18 13:57 Unknown 04:00 Hgb Hct Sodium 136 L Potassium 4.1 Chloride 103.0 Carbon Dioxide 19 L Anion Gap 18 BUN 16 Creatinine 1.2 Estimated GFR 53 BUN/Creatinine Ratio 13 Glucose 139 H POC Glucose Calcium 9.1 Urine Color Straw Urine Turbidity Clear Urine pH 5.0 Ur Specific [place] 1.004 Urine Protein <15 mg/dl Urine Glucose (UA) Neg Urine Ketones Neg Urine Blood Neg Urine Nitrite Neg Urine Bilirubin Neg Urine Urobilinogen < 2.0 Ur Leukocyte Esterase Tr Urine WBC (Auto) 1.0 Urine RBC (Auto) 2.0 U Epithel Cells (Auto) 2.0 Urine Bacteria (Auto) 1+ Blood Type B POSITIVE Antibody Screen Negative Crossmatch See Detail 12/25/18 12/25/18 12/25/18 04:00 09:12 10:50 Hgb 9.0 L 9.8 L Hct 26.9 L 29.3 L Sodium Potassium Chloride Carbon Dioxide Anion Gap BUN Creatinine Estimated GFR BUN/Creatinine Ratio Glucose POC Glucose 159 H Calcium Urine Color Urine Turbidity Urine pH Ur Specific [place] Urine Protein Urine Glucose (UA) Urine Ketones Urine Blood Urine Nitrite Urine Bilirubin Urine Urobilinogen Ur Leukocyte Esterase Urine WBC (Auto) Urine RBC (Auto) U Epithel Cells (Auto) Urine Bacteria (Auto) Blood Type Antibody Screen Crossmatch 12/25/18 12/25/18 13:50 18:39 Hgb Hct Sodium Potassium Chloride Carbon Dioxide Anion Gap BUN Creatinine Estimated GFR BUN/Creatinine Ratio Glucose POC Glucose 156 H 130 H Calcium Urine Color Urine Turbidity Urine pH Ur Specific [place] Urine Protein Urine Glucose (UA) Urine Ketones Urine Blood Urine Nitrite Urine Bilirubin Urine Urobilinogen Ur Leukocyte Esterase Urine WBC (Auto) Urine RBC (Auto) U Epithel Cells (Auto) Urine Bacteria (Auto) Blood Type Antibody Screen Crossmatch Assessment and Plan Patient seen and examined. I have reviewed the advanced practitioner's evaluation, assessment, and plan, and agree with them. I note the following additions: patient with severe symptomatic anemia requiring blood transfusion; based upon history and physical unable to isolate upper vs lower GI source, therefore will proceed with EGD/colon tomorrow Please prep overnight - Patient Problems (1) Blood loss anemia Current Visit: Yes Status: Acute (2) GI bleed Current Visit: Yes Status: Acute Qualifiers: GI bleed type/associated pathology: anorectal hemorrhage Qualified Code(s): K62.5 - Hemorrhage of anus and rectum (3) Symptomatic anemia Current Visit: Yes Status: Acute
[2018-12-25 10:46] LABS: Bacteria,Urine 1+ /HPF (Negative); Bilirubin,Urine NEG (Negative); Blood,Urine NEG (Negative); Color,Urine Straw (Yellow); Protein,Urine <15 mg/dL mg/dL (Negative); Urobilinogen,Urine < 2.0 mg/dL (<2.0)
[2018-12-25] MEDS: PANTOPRAZOLE 40 MG INJ IV SCH ×2 (10:48→21:50)
[2018-12-25 11:42] LABS: Hematocrit 29.3 % (30.3-42.9); Hemoglobin 9.8 gm/dl (10.1-14.3)
[2018-12-25] MEDS ORDERED: POLYETHYLENE GLYCOL/ELECT SOLN 4000 ML PO ONE ×2 (12:00→16:00)
[2018-12-26] MEDS: INSULIN LISPRO 100 UNIT/ML SUB-Q SCH ×4 (00:50→17:21)
[2018-12-26] MEDS: PANTOPRAZOLE 40 MG INJ IV SCH (09:03)
[2018-12-26 10:11] LABS: Hematocrit 28.7 % (30.3-42.9); Hemoglobin 9.4 gm/dl (10.1-14.3)
--- NOTE | 2018-12-26 12:16 | Progress Note ---
Assessment and Plan Assessment and plan: --Acute on chronic GI bleed Current Visit: Yes Status: Acute Probably from Hemorrhoids GI following, endoscopy today --Acute Blood loss anemia Current Visit: Yes Status: Acute Acute blood loss anemia s/p 2 units of PRBC infusion , HB improved 6.1- 9.8-9.4 Closely monitor H&H and transfuse additional as needed --HTN (hypertension) Current Visit: Yes Status: Chronic Catapress patch, when necessary medications --T2DM (type 2 diabetes mellitus) Current Visit: Yes Status: Chronic SSC , Accu-Cheks, insulin as needed -- H/O Gout. Current Visit: Yes Status: Inactive Hold Allopurinol . --DVT prophylaxis: SCD, pharmacologic anticoagulation in view of Severe anemia and GI bleeding Follow endoscopy if negative and stable patient may be discharged home this evening History Interval history: Patient seen and examined medical records reviewed Patient feels slightly better no new complaints Vital signs reviewed Hospitalist Physical - Constitutional Vitals: Temp Pulse Resp BP Pulse Ox 98.6 F 86 18 128/56 99 12/26/18 07:44 12/26/18 07:44 12/26/18 10:00 12/26/18 07:44 12/26/18 10:00 General appearance: Present: no acute distress, well-nourished - EENT Eyes: Present: PERRL, EOM intact - Neck Neck: Present: supple, normal ROM - Respiratory Respiratory effort: normal Respiratory: bilateral: diminished, negative: rales, rhonchi, wheezing - Cardiovascular Rhythm: regular Heart Sounds: Present: S1 & S2 - Extremities Extremities: no ischemia, No edema - Abdominal General gastrointestinal: soft, non-tender, non-distended, normal bowel sounds - Integumentary Integumentary: Present: clear, warm - Psychiatric Psychiatric: appropriate mood/affect, cooperative - Neurologic Neurologic: CNII-XII intact, moves all extremities Results - Labs CBC & Chem 7: 12/26/18 09:29 12/25/18 04:00 Labs: Laboratory Last Values WBC 6.9 K/mm3 (4.5-11.0) 12/24/18 18:35 RBC 2.66 M/mm3 (3.65-5.03) L 12/24/18 18:35 Hgb 9.4 gm/dl (10.1-14.3) L 12/26/18 09:29 Hct 28.7 % (30.3-42.9) L 12/26/18 09:29 MCV 70 fl (79-97) L 12/24/18 18:35 MCH 23 pg (28-32) L 12/24/18 18:35 MCHC 33 % (30-34) 12/24/18 18:35 RDW 18.5 % (13.2-15.2) H 12/24/18 18:35 Plt Count 468 K/mm3 (140-440) H 12/24/18 18:35 Lymph % (Auto) 40.7 % (13.4-35.0) H 12/24/18 18:35 [place] % (Auto) 8.1 % (0.0-7.3) H 12/24/18 18:35 Eos % (Auto) 1.5 % (0.0-4.3) 12/24/18 18:35 Baso % (Auto) 0.4 % (0.0-1.8) 12/24/18 18:35 Lymph # 2.8 K/mm3 (1.2-5.4) 12/24/18 18:35 [place] # 0.6 K/mm3 (0.0-0.8) 12/24/18 18:35 Eos # 0.1 K/mm3 (0.0-0.4) 12/24/18 18:35 Baso # 0.0 K/mm3 (0.0-0.1) 12/24/18 18:35 Seg Neutrophils % 49.3 % (40.0-70.0) 12/24/18 18:35 Seg Neutrophils # 3.4 K/mm3 (1.8-7.7) 12/24/18 18:35 PT 12.5 Sec. (12.2-14.9) 12/24/18 14:37 INR 0.94 (0.87-1.13) 12/24/18 14:37 APTT 26.0 Sec. (24.2-36.6) 12/24/18 14:37 VBG pH 7.412 (7.320-7.420) 12/24/18 14:37 Sodium 136 mmol/L (137-145) L 12/25/18 04:00 Potassium 4.1 mmol/L (3.6-5.0) 12/25/18 04:00 Chloride 103.0 mmol/L (98-107) 12/25/18 04:00 Carbon Dioxide 19 mmol/L (22-30) L 12/25/18 04:00 Anion Gap 18 mmol/L 12/25/18 04:00 BUN 16 mg/dL (7-17) 12/25/18 04:00 Creatinine 1.2 mg/dL (0.7-1.2) 12/25/18 04:00 Estimated GFR 53 ml/min 12/25/18 04:00 BUN/Creatinine Ratio 13 % 12/25/18 04:00 Glucose 139 mg/dL (65-100) H 12/25/18 04:00 POC Glucose 173 (70-105) H 12/26/18 11:13 Hemoglobin A1c 12.7 % (4-6) H 12/24/18 19:12 Calcium 9.1 mg/dL (8.4-10.2) 12/25/18 04:00 Total Bilirubin < 0.20 mg/dL (0.1-1.2) 12/24/18 14:37 AST 17 units/L (5-40) 12/24/18 14:37 ALT 16 units/L (7-56) 12/24/18 14:37 Alkaline Phosphatase 56 units/L (35-129) 12/24/18 14:37 Troponin T < 0.010 ng/mL (0.00-0.029) 12/24/18 14:37 Total Protein 5.8 g/dL (6.3-8.2) L 12/24/18 14:37 Albumin 3.4 g/dL (3.9-5) L 12/24/18 14:37 Albumin/Globulin Ratio 1.4 % 12/24/18 14:37 Urine Color Straw (Yellow) 12/24/18 Unknown Urine Turbidity Clear (Clear) 12/24/18 Unknown Urine pH 5.0 (5.0-7.0) 12/24/18 Unknown Ur Specific [place] 1.004 (1.003-1.030) 12/24/18 Unknown Urine Protein <15 mg/dl mg/dL (Negative) 12/24/18 Unknown Urine Glucose (UA) Neg mg/dL (Negative) 12/24/18 Unknown Urine Ketones Neg mg/dL (Negative) 12/24/18 Unknown Urine Blood Neg (Negative) 12/24/18 Unknown Urine Nitrite Neg (Negative) 12/24/18 Unknown Urine Bilirubin Neg (Negative) 12/24/18 Unknown Urine Urobilinogen < 2.0 mg/dL (<2.0) 12/24/18 Unknown Ur Leukocyte Esterase Tr (Negative) 12/24/18 Unknown Urine WBC (Auto) 1.0 /HPF (0.0-6.0) 12/24/18 Unknown Urine RBC (Auto) 2.0 /HPF (0.0-6.0) 12/24/18 Unknown U Epithel Cells (Auto) 2.0 /HPF (0-13.0) 12/24/18 Unknown Urine Bacteria (Auto) 1+ /HPF (Negative) 12/24/18 Unknown Blood Type B POSITIVE 12/24/18 13:57 Antibody Screen Negative 12/24/18 13:57 Crossmatch See Detail 12/24/18 13:57 Active Medications - Current Medications Current Medications: Generic Name Dose Route Start Last Admin Trade Name Freq PRN Reason Stop Dose Admin Acetaminophen 650 mg 12/24/18 18:59 Tylenol PO Q4H PRN Pain MILD(1-3)/Fever >100.5/FARFAN Clonidine HCl 0.1 mg 12/24/18 20:00 12/24/18 23:28 Catapres-Tts Patch TD Not Given We [facility] Hydromorphone HCl 0.5 mg 12/24/18 19:03 Dilaudid IV Q3H PRN Pain , Severe (7-10) Sodium Chloride 500 mls @ 0 mls/hr 12/24/18 19:07 12/24/18 23:14 Nacl 0.9% 500 Ml IV 50 mls/hr ONCE TASHA Administration As Directed Insulin Human Lispro 0 unit 12/25/18 07:00 12/26/18 11:49 Humalog SUB-Q Not Given Q6HR [facility] Protocol Ondansetron HCl 4 mg 12/24/18 18:59 Zofran IV Q8H PRN Nausea And Vomiting Pantoprazole Sodium 40 mg 12/24/18 22:00 12/26/18 09:03 Protonix IV 40 mg BID TASHA Administration Sodium Chloride 10 ml 12/24/18 22:00 12/26/18 09:03 Sodium Chloride Flush Syringe 10 Ml IV 10 ml BID TASHA Administration Sodium Chloride 10 ml 12/24/18 18:59 Sodium Chloride Flush Syringe 10 Ml IV PRN PRN LINE FLUSH Nutrition/Malnutrition Assess - Dietary Evaluation Nutrition/Malnutrition Findings: Nutrition Notes Start: 12/25/18 11:23 Freq: Status: Active Protocol: Document 12/25/18 11:23 CC (Rec: 12/25/18 11:27 CC [id number]) Co-Sign 12/25/18 11:23 LP Nutrition Notes 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 Pt reported her UBW is 190lbs (86.36kg) and last weighed this 3 months ago. Pt reported she was changed from npo to clear liquid at lunch. Pt is schedueled for EGD/ colonoscopy tomorrow and will be back on npo diet. Burn Absent Trauma Absent GI Symptoms Constipation Difficulty In Chewing Food Allergy No Minimum of two criteria Yes Energy Intake (non-severe) <75% Estimated Energy Requirement >7 days Interpretation of Weight Loss (severe) >7.5% in 3 months #1 Nutrition Diagnosis Malnutrition Etiology poor appetite d/t GI bleed As Evidenced by Signs and Symptoms <75% esitmated energy requirements >7 days, 12% wt loss in 3 months Is patient on ventilator? No Is Patient Ambulatory and/or Out of Bed Yes REE-([place]-St. Jeor-ambulatory/OOB) [ 1612.000 [id number]] [facility] Additional Notes PRO: 77-114g/day (1.2-1.5g/kg) Fluid: 1ml/kcal Nutrition Intervention Change Diet Order: continue clear liquid until diet can be advanced Goal #1 Advance diet when medically feasible Anticipated Discharge Needs: unknown at this time Follow-Up By: 12/29/18 Additional Comments f/u diet advancment, PO intakes
--- NOTE | 2018-12-26 14:37 | Anesthesia Day of Surgery ---
Anesthesia Day of Surgery - Day of Surgery Patient Examined: Yes Patient H&P Reviewed: Yes Patient is NPO: Yes
--- NOTE | 2018-12-26 14:40 | Anesthesia Consultation ---
Anesthesia Consult and Med Hx Date of service: 12/26/18 - Airway Anesthetic Teeth Evaluation: Good, Partials ROM Head & Neck: Adequate Mental/Hyoid Distance: Adequate Mallampati Class: Class II Intubation Access Assessment: Good - Pre-Operative Health Status ASA Pre-Surgery Classification: ASA3 Proposed Anesthetic Plan: MAC - Pulmonary Hx Sleep Apnea: Yes - Cardiovascular System Hx Hypertension: Yes (Denies cardiac symptoms. Not very active) - Gastrointestinal Hx Gastroesophageal Reflux Disease: Yes - Endocrine Hx Non-Insulin Dependent Diabetes: Yes - Hematic Hx Anemia: Yes (Admitted with 6.4/19.7 and trasfused two units PRBC) - Other Systems Hx Alcohol Use: No Hx Substance Use: No Hx Cancer: No
[2018-12-26] MEDS ORDERED: LIDOCAINE MPF (2%) 20 MG/1 ML VIAL 5 ML ONE (15:00)
[2018-12-26] MEDS ORDERED: PROPOFOL 200 MG/20 ML VIAL IV ONE ×3 (15:14→15:46)
--- NOTE | 2018-12-26 15:54 | Operative Report ---
Operative Report Operative Report: DOS: 12/26/18 SURGEON: Sanjiv Flor MD EGD with snare polypectomy and biopsy REPORT PREOPERATIVE DIAGNOSIS and POSTOPERATIVE DIAGNOSIS: Anemia ESTIMATED BLOOD LOSS: minimal DESCRIPTION OF PROCEDURE: A high-resolution EGD scope was passed through the oropharynx, esophagus, stomach, and third portion of duodenum. The scope was carefully withdrawn. Retroflexion was performed in the stomach. At the end of the procedure, the scope was cleaned using normal technique. Vital signs monitored continuously throughout. SEDATION: Provided by Anesthesiology Services. COMPLICATIONS: None. FINDINGS: * No gross lesions in the entire examined duodenum. Biopsies were taken to rule out celiac disease. A total of 6 biopsies were taken, the first from the duodenal bulb, with each subsequent biopsies progressively distal with the last biopsy as distal as could be reached with the endoscope * Moderate gastritis with erythema of the gastric antrum and body. Biopsies were taken to rule out H. Pylori infection. A total of 5 biopsies were taken, 2 from the antrum, 1 from the incisura, 2 from the body. * Multiple sessile and semi-sessile polyps in the gastric body and fundus, ranging in size from 2mm to 7mm. 5 of the larger polyps were removed with cold snare polypectomy and retrieved. * Z line irregular at 41cm from the incisors * Remainder of the exam was normal RECOMMENDATIONS: * F/u path results * proceed with EGD
[2018-12-26] MEDS ORDERED: SODIUM CHLORIDE 0.9% 1000 ML 1,000 ML IV SCH (16:00)
--- NOTE | 2018-12-26 16:01 | Operative Report ---
Operative Report Operative Report: DOS: 12/26/18 SURGEON: Sanjiv Flor MD COLONOSCOPY REPORT PREOPERATIVE AND POSTOPERATIVE DIAGNOSIS: Anemia DESCRIPTION OF PROCEDURE: The colonoscope was passed to the cecum as identified by the ileocecal valve and appendiceal orifice. Scope was carefully withdrawn. Retroflexion was performed in the rectum. At the end of procedure, the scope was cleaned using normal technique. Vital signs monitored continuously throughout. Procedure was difficulty due to extensive looping. Counterpressure used to get to the cecum, but despite extensive efforts could not intubate the terminal ileum SEDATION: Provided by Anesthesiology Services. Quality of the prep was limited COMPLICATIONS: None. ESTIMATED BLOOD LOSS: none FINDINGS: * Large external non thrombosed hemorrhoid * Moderate to severe diverticulosis of the entire colon * Remainder of the exam was normal RECOMMENDATIONS: * No source for bleeding on the EGD/Colon * Hgb stable * Therefore ok for discharge with outpatient pillcam from GI standpoint (I will arrange) * Regarding CRC screening, the quality of the colon cleanse was limited and therefore would not be adequate to rule out small or flat polyps
[2018-12-26 17:21] VITALS: BP 126/48
--- NOTE | 2018-12-26 17:27 | Post Anesthesia Evaluation ---
- Post Anesthesia Evaluation Patient Participated: Yes Airway Patent: Yes Stable Respiratory Function: Yes Nausea/Vomiting: No Temp > 96.8F: Yes Pain Manageable: Yes Adequeate Hydration: Yes Anesthesia Complications: No Block Receding Appropriately: Not Applicable Patient on Ventilator: No
--- NOTE | 2018-12-26 18:29 | Discharge Summary ---
Providers - Providers Date of Admission: 12/25/18 15:50 Date of discharge: 12/26/18 Attending physician: VELASQUEZ FORTE 12/24/18 19:03 Consult to Physician [CONS] Routine Comment: Consulting Provider: RICO GRIFFITH Physician Instructions: Reason For Exam: gi bleed 12/25/18 08:45 Physical Therapy Evaluation and Treat [CONS] Routine Comment: Reason For Exam: Weakness Primary care physician: WICKER MOLDED CANDLES Hospitalization Reason for admission: Severe anemia and GI bleeding Condition: Stable Pertinent studies: CXR Procedures: EGD with snare polypectomy and biopsy REPORT Hospital course: 73 yo AA comes to ER today bcoz she got a call from the Urgent care center she visited 2 days ago that her Hgb was low and she needed to come to ER for blood transfusion.Pt endorses generalized weakness. NO chest pain. SOB with activity. She had bright red stool last week. Has hemorrhoids to which she attributes.Last BM yesterday- brown.No abd pain. Reports being cold all the time. Also endorses dec appetite. Had UGI and [facility]GI 2016- gerd and polyps were findings. Denies etoh/cig or drugs or NSAID use.Admitted,received 2 units PRBC,Evaluated and managed by GI. EGD: PREOPERATIVE DIAGNOSIS and POSTOPERATIVE DIAGNOSIS: Anemia ESTIMATED BLOOD LOSS: minimal DESCRIPTION OF PROCEDURE: A high-resolution EGD scope was passed through the oropharynx, esophagus, stomach, and third portion of duodenum. The scope was carefully withdrawn. Retroflexion was performed in the stomach. At the end of the procedure, the scope was cleaned using normal technique. Vital signs monitored continuously throughout. SEDATION: Provided by [facility]. COMPLICATIONS: None. FINDINGS: * No gross lesions in the entire examined duodenum. Biopsies were taken to rule out celiac disease. A total of 6 biopsies were taken, the first from the duodenal bulb, with each subsequent biopsies progressively distal with the last biopsy as distal as could be reached with the endoscope * Moderate gastritis with erythema of the gastric antrum and body. Biopsies we re taken to rule out H. Pylori infection. A total of 5 biopsies were taken, 2 from the antrum, 1 from the incisura, 2 from the body. * Multiple sessile and semi-sessile polyps in the gastric body and fundus, ranging in size from 2mm to 7mm. 5 of the larger polyps were removed with cold snare polypectomy and retrieved. * Z line irregular at 41cm from the incisors * Remainder of the exam was normal RECOMMENDATIONS: * F/u path results * f/u GI out pt. COLONOSCOPY REPORT PREOPERATIVE AND POSTOPERATIVE DIAGNOSIS: Anemia DESCRIPTION OF PROCEDURE: The colonoscope was passed to the cecum as identified by the ileocecal valve and appendiceal orifice. Scope was carefully withdrawn. Retroflexion was performed in the rectum. At the end of procedure, the scope was cleaned using normal technique. Vital signs monitored continuously throughout. Procedure was difficulty due to extensive looping. Counterpressure used to get to the cecum, but despite extensive efforts could not intubate the terminal ileum SEDATION: Provided by [facility]. Quality of the prep was limited COMPLICATIONS: None. ESTIMATED BLOOD LOSS: none FINDINGS: * Large external non thrombosed hemorrhoid * Moderate to severe diverticulosis of the entire colon * Remainder of the exam was normal RECOMMENDATIONS: * No source for bleeding on the EGD/Colon * Hgb stable * Therefore ok for discharge with outpatient pillcam from GI standpoint (I will arrange) * Regarding CRC screening, the quality of the colon cleanse was limited and therefore would not be adequate to rule out small or flat polyps --Acute on chronic GI bleed Current Visit: Yes Status: Acute Probably from Hemorrhoids GI following, endoscopy today --Acute Blood loss anemia Current Visit: Yes Status: Acute Acute blood loss anemia s/p 2 units of PRBC infusion , HB improved 6.1- 9.8-9.4 Closely monitor H&H and transfuse additional as needed --HTN (hypertension) Current Visit: Yes Status: Chronic Catapress patch, when necessary medications --T2DM (type 2 diabetes mellitus) Current Visit: Yes Status: Chronic SSC , Accu-Cheks, insulin as needed -- H/O Gout. Current Visit: Yes Status: Inactive Hold Allopurinol . --DVT prophylaxis: SCD, pharmacologic anticoagulation in view of Severe anemia and GI bleeding Stable at discharge Disposition: [id number] HOME UNDER HOME [facility] Time spent for discharge: 32 min Core Measure Documentation - Palliative Care Palliative Care/ Comfort Measures: Not Applicable - Core Measures Any of the following diagnoses?: none Exam - Constitutional Vitals: Temp Pulse Resp BP Pulse Ox 97.5 F L 84 18 126/48 98 12/26/18 17:13 12/26/18 17:13 12/26/18 17:13 12/26/18 17:13 12/26/18 17:13 General appearance: Present: no acute distress, well-nourished - EENT Eyes: Present: PERRL, EOM intact - Neck Neck: Present: supple, normal ROM - Respiratory Respiratory effort: normal Respiratory: bilateral: diminished, negative: rales, rhonchi, wheezing - Cardiovascular Rhythm: regular Heart Sounds: Present: S1 & S2 - Extremities Extremities: no ischemia, No edema - Abdominal General gastrointestinal: Present: soft, non-tender, non-distended, normal bowel sounds - Integumentary Integumentary: Present: clear, warm - Musculoskeletal Musculoskeletal: strength equal bilaterally - Psychiatric Psychiatric: appropriate mood/affect, cooperative - Neurologic Neurologic: CNII-XII intact, moves all extremities Plan Activity: advance as tolerated Diet: diabetic Additional Instructions: If you have any more episodes of GI bleeding contact M.D. or go to emergency room Follow up with: LEONARDO TOSCANO MD [Primary Care Provider] - 3-5 Days DODIE LOPEZ MD [Staff Physician] - 7 Days
== END 2018-12-26 19:35 | disposition home health service (06) | DRG 394 ==
LOC: ED 13:33 → 2B-ACE 19:00 → OBSVTOIN 12-25 15:50
PROVIDERS: ADMIT Internal Medicine; ATTEND Internal Medicine
PROC: 30233N1 Transfusion of Nonautologous Red Blood Cells into Peripheral Vein, Percutaneous Approach (ICD-10-PCS; 2018-12-24)
PROC: 0DB98ZZ Excision of Duodenum, Via Natural or Artificial Opening Endoscopic (ICD-10-PCS; principal; 2018-12-26)
PROC: 0DJD8ZZ Inspection of Lower Intestinal Tract, Via Natural or Artificial Opening Endoscopic (ICD-10-PCS; 2018-12-26)
PROC: 0DB68ZZ Excision of Stomach, Via Natural or Artificial Opening Endoscopic (ICD-10-PCS; 2018-12-26)
DX: K64.4 Residual hemorrhoidal skin tags (principal); D62 Acute posthemorrhagic anemia; E44.0 Moderate protein-calorie malnutrition; G47.30 Sleep apnea, unspecified; I10 Essential (primary) hypertension; K21.9 Gastro-esophageal reflux disease without esophagitis; E11.9 Type 2 diabetes mellitus without complications; M10.9 Gout, unspecified; K29.70 Gastritis, unspecified, without bleeding; M19.90 Unspecified osteoarthritis, unspecified site; Z79.899 Other long term (current) drug therapy; Z82.49 Family history of ischemic heart disease and other diseases of the circulatory system
CPT/HCPCS: 36415; 71045; 80048; 80053; 81001; 82805; 82962; 83036; 84484; 85014; 85018; 85025; 85610; 85730; 86850; 86900; 86901; 86920; 88305; 88342; 93005; 93010; 96365; G0378; C9113; J1815; J2704; J7030; J7040; P9016

== ENCOUNTER 2021-07-12 08:33 | Outpatient (CLI) | payer MEDICARE ==
--- NOTE | 2021-07-12 09:42 | XRay Report ---
BILATERAL KNEE 2 VIEW(S) INDICATION / CLINICAL INFORMATION: PAIN IN UNSPECIFIED KNEE COMPARISON: None available. FINDINGS: BONES / JOINT(S): No acute fracture or subluxation. There is mild degenerative change in both knees p redominantly involving the medial and patellofemoral compartments slightly greater on the right and l eft. SOFT TISSUES: No significant abnormality. ADDITIONAL FINDINGS: None. Signer Name: Noe Perrin MD Signed: 07/12/2021 9:37 AM Workstation Name: [id number]
== END 2021-07-12 08:34 | disposition home or self-care (01) ==
LOC: XRAY 08:33
PROVIDERS: ATTEND Orthopaedic Surgery
DX: M17.0 Bilateral primary osteoarthritis of knee (principal)
CPT/HCPCS: 73565